=== PATIENT | male | born 1960 | race Caucasian/White ===

== ENCOUNTER 2021-09-06 20:00 | Emergency (ER) | payer OTHER ==
[2021-09-06] MEDS ORDERED: Lidocaine 1% 5 ML VIAL INJECT ONE (20:46)
== END 2021-09-06 21:20 | disposition home or self-care (01) ==
LOC: JP.ED 20:00
DX: L03.031 Cellulitis of right toe (principal); L02.611 Cutaneous abscess of right foot
CPT/HCPCS: 10060; 99283; 99283-25